=== PATIENT | female | born 1935 | race Two or more races ===

== ENCOUNTER 2024-11-30 09:49 | Inpatient (IN) | payer MEDICARE, MEDICAID, SELFPAY ==
[2024-11-30] VITALS (27 sets, daily range): BP systolic 48–150; BP diastolic 38–106; PULSE 76–112; RESP 16–98; TEMP 36.4; O2SAT 69–100; BMI 27.2
--- NOTE | 2024-11-30 09:55 | EDNOTE_ITS ---
Altered Mental Status RME/HPI General Chief Complaint: Altered Mental Status Stated Complaint: AMS Arrival date/time: 11/30/24 09:49 Limitations: no limitations RME / HPI RME / HPI narrative: 89 year old female with history of hypertension, diabetes, rectal adenocarcinoma, s/p abdominoperineal resection with colostomy, underwent chemotherapy presents to the ED BIBA from home for evaluation of altered mental status. According to medics, family on scene reported the patient was at her baseline this morning and was engaged in conversation when she suddenly complained of chest pain, then became unresponsive shortly after. On their arrival, the patient was noted to be pale and diaphoretic. Telemetry showed atrial fibrillation with a heart rate of 49 bpm, SBP of 94, blood glucose of 220, and a GCS of 6. Medics also reported that the patient bit her tongue en route to the ED, although no seizure activity was witnessed. Upon arrival to the ED, the patient is nonverbal and unable to provide additional history. Related Data Home Medications ?Medication ?Instructions ?Recorded ?Confirmed amlodipine 10 mg tablet 10 mg PO QDAY 02/12/2103/08 celecoxib 200 mg capsule 200 mg PO BID PRN pain 02/1203/08/23 clonazepam 1 mg tablet 1 mg PO HS 02/12/21 03/08/23 metformin 1,000 mg tablet 1,000 mg PO BID 02/12/21 olmesartan 40 1 tab PO QDAY 02/12/2103/08 mg-hydrochlorothiazide 25 mg tablet omeprazole 20 mg capsule,delayed 20 mg PO QMORNING 03/08/23 release Allergies Allergy/AdvReac Type Severity Reaction Status Date / Time Penicillins Allergy Unknown Verified 03/08/23 08:35 Review of Systems Review of Systems ROS Unobtainable: unobtainable due to mental status Past Medical History Past Medical History CARDIAC: Positive Cardiac Disorders and Hypertension GASTROINTESTINAL: Positive Gastrointestinal Disorders (tumor in colon had surgery) and Ulcer (many years ago) REPRODUCTIVE: Positive Previous Pregnancies MUSCULOSKELETAL: Positive Musculoskeletal Disorders and Arthritis ENT: Positive Cataracts ENDOCRINE: Positive Endocrine Disorders and Diabetes Mellitus Type 2 PSYCHO/SOCIAL: Positive Depression and Anxiety OTHER HISTORY: Positive Chicken Pox Family History FAMILY HISTORY: Positive Family Surgery Surgical History SURGICAL: Positive Abdominal Surgery (COLOSTOMY) Social History SMOKING STATUS: Never smoker ED Exam General Limitations: Present no limitations General appearance: Present other (Eyes closed, does respond to voice, tachypneic, pale, mild diaphoresis) Head Head exam: Present atraumatic, normocephalic and normal inspection Eye Eye exam: Present normal appearance, PERRL and EOMI ENT ENT exam: Present normal exam, normal oropharynx and mucous membranes moist Neck Neck exam: Present normal inspection, full ROM, trachea midline and other (No JVD ) Chest Chest inspection: Present normal inspection and symmetric chest wall rise Respiratory Respiratory exam: Present other (slight expiratory wheeze in the bases ) Cardiovascular Cardiovascular exam: Present regular rate, normal rhythm and other (distant heart sounds ) Abdominal Exam Abdominal exam: Present soft and normal bowel sounds Extremities Exam Extremities exam: Present normal inspection Back Exam Back exam: Present normal inspection and full ROM Neurological Exam Neurological exam: Present other (Patient is has eyes closed, does respond to voice, nonfocal ) Psychiatric Psychiatric exam: Present normal affect and normal mood Skin Skin exam: Present warm, intact, diaphoresis (mild) and pallor Course Quality Measures none Orders Category Date Time Status Bedside Blood Glucose NOW Care 11/30/24 10:20 Active COVID-19 Screening Questionnaire NOW Care 11/30/24 12:10 Active Insurance Compliance Analyst NOW Care 11/30/24 10:20 Active Continuous Pulse Oximetry NOW Care 11/30/24 10:20 Completed Decision to Admit X1 Care 11/30/24 12:10 Completed EKG (ED ONLY) *Do not use* NOW Care 11/30/24 10:20 Completed White to Robert Routine Care 11/30/24 11:25 Ordered Insert IV NOW Care 11/30/24 10:20 Active Intubation NOW Care 11/30/24 12:14 Completed NIH Stroke Scale now Care 11/30/24 10:20 Active NPO NOW Care 11/30/24 10:20 Active Neuro Check Q15MIN Care 11/30/24 10:20 Completed Nurse Swallow Screen x1 Care 11/30/24 10:20 Active Consult to Neurology / Tele-Neurology Routine Cons 11/30/24 10:[address] angio stroke protocol Stat Exams 11/30/24 10:[address] stroke protocol Stat Exams 11/30/24 10:20 Completed EKG (ED Only) Stat Exams 11/30/24 10:20 Draft XR chest 1V portable Stat Exams 11/30/24 10:41 Completed Alcohol, Blood Medical Stat Lab 11/30/24 10:20 Completed Arterial Blood Gas Routine Lab 11/30/24 12:12 Completed Arterial Blood Gas Stat Lab 11/30/24 11:13 Completed B-Type Natriuretic Peptide Stat Lab 11/30/24 10:20 Completed CBC Stat Lab 11/30/24 10:20 Completed Comprehensive Metabolic Panel Stat Lab 11/30/24 10:20 Completed Drug Screen,Urine Stat Lab 11/30/24 10:24 Completed Magnesium Stat Lab 11/30/24 10:20 Completed Partial Thromboplastin Time Stat Lab 11/30/24 10:20 Completed Prothrombin Time with INR Stat Lab 11/30/24 10:20 Completed Troponin I Stat Lab 11/30/24 10:20 Completed Urinalysis Stat Lab 11/30/24 10:24 Completed Urine Culture Stat Lab 11/30/24 10:24 Received Etomidate Inj [Amidate Inj] Med 11/30/24 10:30 Discontinued 10 mg IVP X1 ONE Etomidate Inj [Amidate Inj] Med 11/30/24 10:20 Discontinued 20 mg .ROUTE .STK-MED ONE Furosemide [Lasix Inj] Med 11/30/24 11:50 Discontinued 20 mg IVP X1 ONE Norepinephrine/D5W 8mg/250ml [Levophed in D5W 8mg/250ml Med 11/30/24 10:44 Discontinued ] 8 mg in 250 ml IV .STK-MED Norepinephrine/D5W 8mg/250ml [Levophed in D5W 8mg/250ml Med 11/30/24 11:26 Discontinued ] 8 mg in 250 ml IV 0.05 mcg/kg/min Ondansetron Inj [Zofran Inj] Med 11/30/24 10:19 Active 4 mg IV Q4HR PRN Pantoprazole Inj [Protonix Inj] Med 11/30/24 11:22 Discontinued 40 mg IVP X1 ONE Propofol 1,000 mg Ivpb [Diprivan Ivpb] Med 11/30/24 11:52 Discontinued 1,000 mg in 100 ml IV .STK-MED Propofol 1,000 mg Ivpb [Diprivan Ivpb] Med 11/30/24 11:55 Discontinued 1,000 mg in 100 ml IV 5 mcg/kg/min Sodium Chloride 0.9% 1000 ml [Ns] 1,000 ml Med 11/30/24 10:30 Active IV Q10H Succinylcholine Inj [Anectine Inj] Med 11/30/24 10:20 Discontinued 200 mg .ROUTE .STK-MED ONE Succinylcholine Inj [Anectine Inj] Med 11/30/24 10:30 Discontinued 200 mg IV X1 ONE Mechanical [Volume Ventilator] Stat RT 11/30/24 Active Oxygen Delivery NOW RT 11/30/24 10:20 Active Vital Signs Vital signs: Vital Signs Temperature 97.5 F 11/30/24 09:54 Pulse Rate 85 11/30/24 09:54 Respiratory Rate 16 11/30/24 09:54 Blood Pressure 123/60 11/30/24 09:54 Pulse Oximetry (%) 96 11/30/24 09:54 Oxygen Delivery Method Oxy Mask 11/30/24 09:54 Oxygen Flow Rate 15 11/30/24 09:54 Procedures -ED Procedure Comment Please refer to resident Dr. Doshi for intubation procedure. Altered Mental Status MDM Narrative MDM Narrative:: I, Lisandra Kirk, am scribing for and in the presence of Dr. Thomas. 1018: RN reports patient is not moving her left side, stroke orders made at this time. 1030: I spoke with patients family. Report patient is a full code. 1053: HR low 40s. Given epinephrine. 1055: Patients blood pressure 50/30's, no pulses palpable. Code blue called overhead and CPR initiated. 1058: Pulse check, +femoral pulse, sinus tachycardia rate 114 on telemetry, saturating 89%. +ROSC. Patient data External records reviewed:: [facility] previous records (I reviewed oncology f/u note on 02/19/2024 ) and EMS form (I reviewed ECG performed by medics which shows T- wave inversion, no STEMI. ) Clinical information provided by:: EMS Social determinants that could affect healthcare access:: none Patient has the following chronic illnesses:: hypertension, diabetes, rectal adenocarcinoma, s/p abdominoperineal resection with colostomy, underwent chemotherapy How is presenting disease/condition affected by chronic disease/condition?: exacerbated by Evaluation data The following diagnostics were reviewed and interpreted by me:: lab results, radiology exam(s) and EKG tracing(s) (EKG @ 09:53. Sinus rhythm, rate 79, left axis deviation, NV 178ms, QRS 90ms, QT/QTc 381/415ms. ) Lab and/or radiology exams considered but not ordered:: None Interpretation Summary: Ordering Physician: Zach Thomas MD Date of Service: 11/30/24 Procedure(s): CT stroke protocol Accession Number(s): [id number] cc: Zach Thomas MD; Jeremiah Rivera MD; Man Genao MD~ Examination: CT brain head without contrast. 2-D sagittal coronal reconstructions Date and time of exam:November 30, 2024 1142 hrs. Indications: Stroke alert, onset focal neurologic deficit today CTDI: vol (mGy):46.8 DLP: (mGycm):944 Technique: Multiple CT axial sections of the brain have been obtained, 5 mm slice thickness. Contrast has not been administered. 2-D sagittal, coronal reconstructions have been obtained Low dose protocols were performed. One or more of the following dose reduction techniques were used; automated exposure control, adjustment of the mA and/or KV according to patient size, use of iterative reconstruction technique. Findings: No significant ventricular enlargement. Intra-axial or extra-axial hemorrhage density is not seen. No mass effect or midline shift Basal cisterns are not remarkable. Fourth ventricle is midline. Cranial vault intact. Impression: Negative for acute hemorrhage, mass effect or midline shift Dictated By: Jeremiah Rivera MD Signed By: <Electronically signed by Jeremiah Rivera MD in [place]> 11/30/24 1147 Ordering Physician: Zach Thomas MD Date of Service: 11/30/24 Procedure(s): XR chest 1V portable Accession Number(s): [id number] cc: Zach Thomas MD; Jeremiah Rivera MD; Man Genao MD~ Examination: AP chest single view Technique one AP portable semiupright chest single view Indications: Hypoxic respiratory failure Findings: Early heart failure Moderate enlargement left ventricle with vascular congestion and perihilar edema Endotracheal tube tip 4 cm above jahaira Moderate osteopenia Impression: Early CHF. Tracheal tube tip 4 cm above jahaira Dictated By: Jeremiah Rivera MD Signed By: <Electronically signed by Jeremiah Rivera MD in [place]> 11/30/24 1146 ======= Ordering Physician: Zach Thomas MD Date of Service: 11/30/24 Procedure(s): CT angio stroke protocol Accession Number(s): [id number] cc: Zach Thomas MD; Jeremiah Rivera MD; Man Genao MD~ Examination: CTA carotids with intravenous contrast CTA brain, head with intravenous contrast. 2-D sagittal, coronal reconstructions. 3-D reconstructions. Exam date and time: November 30, 2024 1149 hrs. Indications: Stroke alert, onset chest pain status post cardiopulmonary arrest today CTDI: vol (mGy) 34.88 DLP: (mGycm) 463 Technique: Multiple CTA axial brain, head carotid images post intravenous contrast injection 75 cc, Isovue-370. 2-D sagittal, coronal reconstructions. 3-D reconstructions, 3-D post processing including vascular maximum intensity projection images. Low dose protocols were performed. One or more of the following dose reduction techniques were used; automated exposure control, adjustment of the mA and/or KV according to patient size, use of iterative reconstruction technique. Findings: Assessment is difficult secondary to patient motion Occlusion of the proximal right common carotid artery with filling extremely attenuated right internal carotid artery The petrous and juxtasellar central portion of the right internal carotid artery fill via R uniformly reduced in caliber The M1 segment right middle cerebral artery and trifurcation vessels do fill The left common carotid artery carotid bifurcation and internal carotid artery do fill The juxtasellar internal carotid artery on the left fills as well as M1 segments and middle cerebral branches Neck vertebral artery detail is extremely limited secondary to patient motion but vertebral arteries do appear to fill Basilar artery and posterior cerebral branches fill Impression: The study is significantly limited by patient motion There is no significant filling of the right common carotid artery A diffusely attenuated right internal carotid artery does fill There is filling of the supraclinoid portions of the internal carotid arteries M1 segments and middle cerebral artery trifurcation vessels as well as basilar artery and posterior cerebral branches FYI: I asked for this examination to be sent to tele [employer] but no report Dictated By: Jereimah Rivera MD Signed By: <Electronically signed by Jeremiah Rivera MD in [place]> 11/30/24 1420 Medications / Prescriptions Medications or Prescriptions considered but not ordered:: None Medication administrations:: Medication Administration History Acetaminophen (Acetaminophen 325 Mg Tablet) 650 mg PO Q6H PRN PRN Reason: mild pain 1-3 or Fever >100.3 Stop: 12/30/24 12:20 Enoxaparin Sodium (Enoxaparin Sod Inj 40 Mg/0.4 Ml Syringe) 40 mg SC QDAY YAS Stop: 12/14/24 12:29 Last Admin: 11/30/24 12:54 Dose: 40 mg Documented By: YAIR Famotidine (Famotidine Inj 10 Mg/Ml Vial 2 Ml) 20 mg IVP Q12HR [facility] Stop: 12/30/24 20:59 Sodium Chloride (Ns) 1,000 mls @ 100 mls/hr IV Q10H YAS Stop: 12/30/24 10:29 Last Infusion: 11/30/24 14:50 Dose: 0 mls/hr Documented By: Admin: 11/30/24 10:55 Dose: 100 mls/hr Documented By: YAIR Vasopressin/Sodium Chloride (Vasostrict/Ns Ivpb) 20 unit in 100 mls @ 9 mls/hr IV .Q11H7M PRN; Protocol PRN Reason: PER PROTOCOL Stop: 12/30/24 13:10 Last Titration: 11/30/24 16:24 Dose: 0 unit/min, 0 mls/hr Documented By: Admin: 11/30/24 13:43 Dose: 0.03 unit/min, 9 mls/hr Documented By: YAIR Propofol (Diprivan Ivpb) 1,000 mg in 100 mls @ 1.897 mls/hr IV .Q24H PRN; Protocol PRN Reason: PER PROTOCOL Stop: 12/30/24 11:54 Norepinephrine Bitartrate (Levophed In Ns 16mg/250ml) 16 mg in 250 mls @ 2.964 mls/hr IV .Q24H PRN; Protocol PRN Reason: PER PROTOCOL Stop: 12/30/24 14:41 Magnesium Sulfate (Magnesium Sulfate Ivpb) 2 gm in 50 mls @ 25 mls/hr IV X1 ONE Stop: 11/30/24 16:56 Dobutamine HCl/Dextrose (Dobutrex/D5w Ivpb) 500 mg in 250 mls @ 1.897 mls/hr IV .Q24H PRN; Protocol PRN Reason: PER PROTOCOL Stop: 12/30/24 15:30 Ondansetron HCl (Ondansetron Inj 2 Mg/Ml Inj 2 Ml) 4 mg IV Q4HR PRN PRN Reason: NAUSEA OR VOMITING Stop: 12/30/24 10:18 Pharmacy Consult (Vancomycin Pharmacy To Dose 1 Each Each) 1 each IV QDAY PRN PRN Reason: PROTOCOL Stop: 12/30/24 12:44 Discontinued Medications Etomidate (Etomidate Inj 2 Mg/Ml Vial 10 Ml) Confirm Administered Dose 20 mg .ROUTE .STK-MED ONE Stop: 11/30/24 10:21 Last Admin: 11/30/24 10:44 Dose: Not Given Documented By: YAIR Non-Admin Reason: Override Medication Etomidate (Etomidate Inj 2 Mg/Ml Vial 10 Ml) 10 mg IVP X1 ONE Stop: 11/30/24 10:31 Last Admin: 11/30/24 10:36 Dose: Not Given Documented By: YAIR Non-Admin Reason: Duplicate Medication on eMAR Admin: 11/30/24 10:29 Dose: 10 mg Documented By: YAIR Furosemide (Furosemide Inj 10 Mg/Ml Vial 2 Ml) 20 mg IVP X1 ONE Stop: 11/30/24 11:51 Last Admin: 11/30/24 13:17 Dose: Not Given Documented By: YAIR Non-Admin Reason: Contraindicated Norepinephrine/Dextrose (Levophed In D5w 8mg/250ml) Confirm Administered Dose 8 mg in 250 mls @ ud IV .STK-MED ONE Stop: 11/30/24 10:45 Last Admin: 11/30/24 11:13 Dose: Not Given Documented By: YAIR Non-Admin Reason: Override Medication Norepinephrine/Dextrose (Levophed In D5w 8mg/250ml) 8 mg in 250 mls @ 5.928 mls/hr IV .Q24H PRN; Protocol PRN Reason: PER PROTOCOL Stop: 12/30/24 11:25 Last Titration: 11/30/24 16:26 Dose: Infused Documented By: Titration: 11/30/24 13:03 Dose: 0.5 mcg/kg/min, 59.279 mls/hr Documented By: Titration: 11/30/24 13:00 Dose: 0.3 mcg/kg/min, 35.567 mls/hr Documented By: Titration: 11/30/24 12:38 Dose: 0.27 mcg/kg/min, 32.011 mls/hr Documented By: Titration: 11/30/24 11:00 Dose: 0.25 mcg/kg/min, 29.64 mls/hr Documented By: Admin: 11/30/24 10:26 Dose: 0.05 mcg/kg/min, 5.928 mls/hr Documented By: YAIR Propofol (Diprivan Ivpb) 1,000 mg in 100 mls @ 1.897 mls/hr IV .Q24H PRN; Protocol PRN Reason: PER PROTOCOL Stop: 12/30/24 11:54 Last Titration: 11/30/24 12:40 Dose: 10 mcg/kg/min, 3.794 mls/hr Documented By: Admin: 11/30/24 12:05 Dose: 5 mcg/kg/min, 1.897 mls/hr Documented By: YAIR Co-signed By: NASIR Propofol (Diprivan Ivpb) Confirm Administered Dose 1,000 mg in 100 mls @ ud IV .STK-MED ONE Stop: 11/30/24 11:53 Last Admin: 11/30/24 12:13 Dose: Not Given Documented By: YAIR Non-Admin Reason: Override Medication Ceftriaxone Sodium/Dextrose (Rocephin/D5w 1gm Iv Premix) 1 gm in 50 mls @ 100 mls/hr IV QDAY [facility] Stop: 12/07/24 12:41 Last Infusion: 11/30/24 13:27 Dose: Infused Documented By: Admin: 11/30/24 12:57 Dose: 100 mls/hr Documented By: YAIR Vancomycin/Sodium Chloride (Vancomycin/Ns 1 Gm Ivpb) 200 mls @ 120 mls/hr IV X1 ONE Stop: 11/30/24 14:39 Last Infusion: 11/30/24 15:00 Dose: 0 mls/hr Documented By: Admin: 11/30/24 13:43 Dose: 120 mls/hr Documented By: YAIR Sodium Chloride (Ns) 1,000 mls @ 999 mls/hr IV .Q1H1M ONE Stop: 11/30/24 14:06 Last Infusion: 11/30/24 14:20 Dose: Infused Documented By: Admin: 11/30/24 13:15 Dose: 999 mls/hr Documented By: YAIR Piperacillin/Tazobactam/Dextrose (Zosyn) 3.375 gm in 50 mls @ 100 mls/hr IV Q8HR YAS Stop: 12/07/24 14:36 Dobutamine HCl/Dextrose (Dobutrex/D5w Ivpb) 500 mg in 250 mls @ 1.897 mls/hr IV .Q24H PRN; Protocol PRN Reason: Per Protocol Stop: 12/30/24 15:20 Sodium Chloride (Ns) 1,000 mls @ 999 mls/hr IV .Q1H1M ONE Stop: 11/30/24 11:45 Last Infusion: 11/30/24 11:15 Dose: Infused Documented By: Admin: 11/30/24 10:45 Dose: 999 mls/hr Documented By: YAIR Pantoprazole Sodium (Pantoprazole Inj 40 Mg Vial) 40 mg IVP X1 ONE Stop: 11/30/24 11:23 Last Admin: 11/30/24 12:56 Dose: 40 mg Documented By: YAIR Sodium Chloride (Sodium Chloride Rt 10% 15 Ml Nebu) 5 ml INH X1 ONE Stop: 11/30/24 14:03 Last Admin: 11/30/24 14:11 Dose: Not Given Documented By: ADE Non-Admin Reason: Other, see note Succinylcholine Chloride (Succinylcholine Inj 20 Mg/Ml Vial 10 Ml) Confirm Administered Dose 200 mg .ROUTE .STK-MED ONE Stop: 11/30/24 10:21 Last Admin: 11/30/24 10:43 Dose: Not Given Documented By: YAIR Non-Admin Reason: Override Medication Succinylcholine Chloride (Succinylcholine Inj 20 Mg/Ml Vial 10 Ml) 200 mg IV X1 ONE Stop: 11/30/24 10:31 Last Admin: 11/30/24 10:36 Dose: Not Given Documented By: YAIR Non-Admin Reason: Duplicate Medication on eMAR Admin: 11/30/24 10:30 Dose: 100 mg Documented By: YAIR See above Consultations Consultation(s) initiated? (list below): Yes Consultation #1 (Physician, Specialty, Details): I spoke with women nurse Dr. Jamse. Discussed patients PMHx, HPI, ED course, exam findings, labs, and radiology results. She accepts the patient for admission. Time: 12:08 Diagnosis Differential diagnosis altered mental status: altered mental status, hypoglycemia, hyponatremia, subarachnoid hemorrhage and sepsis Most likely diagnosis given after review of the tests above:: Acute respiratory failure Acute CHF Hypoxia Acute hypotension Admission Indicated Admission indicated?: indicated Admission Request Was there a request for admission?: Yes Admission Attestation Admission request attestation: Discussed case with [] from Hospitalist service regarding admission. Discussed patients ED course, exam findings, labs, and radiology results. The Hospitalist [agrees,declines] to accept the patient for admission. Disposition Plan Disposition Plan: Admit Critical Care Time Critical Care Time Critical Care Time: Yes Total Critical Care Time (min.): 60 Attestation: The high probability of sudden, clinically significant deterioration in the patient's condition required the highest level of my preparedness to intervene urgently. The services I provided to this patient were to treat and/or prevent clinically significant deterioration. Services included the following: chart data review, reviewing nursing notes and/or old charts, documentation time, integrity consultant collaboration regarding findings and treatment options, medication orders and management, direct patient care, vital sign assessments and ordering, interpreting and reviewing diagnostic studies and lab tests. Aggregate critical care time includes only time during which I was engaged in work directly related to the patient's care, as described above, whether at bedside or elsewhere in the Emergency Department. It did not include time spent performing other reported procedures or the services of residents, students, nurses or physician assistants. Discharge Plan Plan Patient Disposition: Admit Acute Care w/in Hospital Discharge Disposition comment: ICU Problem List Clinical Impression: Acute respiratory failure, Acute CHF, Hypoxia, Acute hypotension
--- NOTE | 2024-11-30 10:05 | PC.NURSE ---
PATIENT ARRIVED ED WITH ALOC, PER EMS PATIENT WAS FOUND AT HOME WITH FAMILY STATING THAT PATIENT WAS HAVING SUDDEN ONSET OF CHEST PAIN AND BECAME UNRESPONSIVE. EMS ESTABLISHED IV TO LEFT EJ, MONITOR, BS 220. DR SUGGS AT BEDSIDE UPON ARRIVAL, PATIENT GCS 10, WITH VOMITING. PATIENT PLACED IN GOWN, IV ESTABLISHED. PATIENT PRESENTS WITH COLOSTOMY BAG. UNABLE TO GATHER MEDICAL HISTORY DUE TO MENTAL STATUS. ROBERTO PLACED WITH URINE OUTPUT. WILL CONTINUE TO MONITOR PATIENT.
--- NOTE | 2024-11-30 10:20 | XR_ITS ---
Examination: CTA carotids with intravenous contrast CTA brain, head with intravenous contrast. 2-D sagittal, coronal reconstructions. 3-D reconstructions. Exam date and time: November 30, 2024 1149 hrs. Indications: Stroke alert, onset chest pain status post cardiopulmonary arrest today CTDI: vol (mGy) 34.88 DLP: (mGycm) 463 Technique: Multiple CTA axial brain, head carotid images post intravenous contrast injection 75 cc, Isovue-370. 2-D sagittal, coronal reconstructions. 3-D reconstructions, 3-D post processing including vascular maximum intensity projection images. Low dose protocols were performed. One or more of the following dose reduction techniques were used; automated exposure control, adjustment of the mA and/or KV according to patient size, use of iterative reconstruction technique. Findings: Assessment is difficult secondary to patient motion Occlusion of the proximal right common carotid artery with filling extremely attenuated right internal carotid artery The petrous and juxtasellar central portion of the right internal carotid artery fill via R uniformly reduced in caliber The M1 segment right middle cerebral artery and trifurcation vessels do fill The left common carotid artery carotid bifurcation and internal carotid artery do fill The juxtasellar internal carotid artery on the left fills as well as M1 segments and middle cerebral branches Neck vertebral artery detail is extremely limited secondary to patient motion but vertebral arteries do appear to fill Basilar artery and posterior cerebral branches fill Impression: The study is significantly limited by patient motion There is no significant filling of the right common carotid artery A diffusely attenuated right internal carotid artery does fill There is filling of the supraclinoid portions of the internal carotid arteries M1 segments and middle cerebral artery trifurcation vessels as well as basilar artery and posterior cerebral branches FYI: I asked for this examination to be sent to [facility] but no report
--- NOTE | 2024-11-30 10:20 | XR_ITS ---
Examination: CT brain head without contrast. 2-D sagittal coronal reconstructions Date and time of exam:November 30, 2024 1142 hrs. Indications: Stroke alert, onset focal neurologic deficit today CTDI: vol (mGy):46.8 DLP: (mGycm):944 Technique: Multiple CT axial sections of the brain have been obtained, 5 mm slice thickness. Contrast has not been administered. 2-D sagittal, coronal reconstructions have been obtained Low dose protocols were performed. One or more of the following dose reduction techniques were used; automated exposure control, adjustment of the mA and/or KV according to patient size, use of iterative reconstruction technique. Findings: No significant ventricular enlargement. Intra-axial or extra-axial hemorrhage density is not seen. No mass effect or midline shift Basal cisterns are not remarkable. Fourth ventricle is midline. Cranial vault intact. Impression: Negative for acute hemorrhage, mass effect or midline shift
--- NOTE | 2024-11-30 10:20 | EKG_ITS ---
[facility] Test Date: 2024-11-30 Pat Name: CYNTHIA TABOR Department: Room: - Gender: Female Enterprise Systems Engineer: : [id number] Requested By: Zach Hairston Order Number: [id number] Reading MD: Zach Hairston Measurements Intervals [place] Rate: 79 P: 50 [place]: 178 QRS: -67 QRSD: 90 T: 36 QT: 381 QTc: 437 Interpretive Statements SINUS RHYTHM WITH OCCASIONAL SUPRAVENTRICULAR PREMATURE COMPLEXES LEFT AXIS DEVIATION [QRS AXIS < -30] NONSPECIFIC T-WAVE ABNORMALITY Compared to ECG 02/17/2022 08:44:00 Incomplete right bundle-branch block no longer present Possible ischemia no longer present T-wave abnormality still present /store/S0/[id number]/[id number].pdf
[2024-11-30] MEDS: Norepinephrine/D5W 8mg/250ml 8 MG/250 ML BAG 5.928 MG IV (10:26)
[2024-11-30] MEDS: ETOMIDATE INJ 2 MG/ML VIAL 10 ML 10 MG IVP (10:29)
[2024-11-30] MEDS: SUCCINYLCHOLINE INJ 20 MG/ML VIAL 10 ML 200 MG IV (10:30)
--- NOTE | 2024-11-30 10:30 | PC.NURSE ---
DR. SUGGS AT BEDSIDE TO EVALUTE PATIENTS BREATHING PRIOR TO TAKING TO CT. PATIENT WITH LABORED BREATHING AND CONTINUED ALTERED MENTAL STATUS. TEAM AT BEDSIDE TO PERFORM INTUBATION. MEDICATION ADMINISTERED, PATIENT INTUBATION COMPLETED AT 1030. 7.5 ET TUBE WITH 23 AT THE LIPS, POSITIVE COLOR CHANGE WITH CO2 DETECTOR, BILATERAL LUNG SOUNDS. PATIENT BEGAN TO ANDREW DOWN TO 40 BPM, NO PULSE PALPATED. CODE BLUE CALLED, TEAM ARRIVED, 1 ROUND OF EPI GIVEN, CPR, PATIENT PLACED ON AED WITH PEA AT 1055. AT 1100 PATIENT WITH PULSES, LEVOFED AND PROPOFOL DRIP STARTED. DR. SUGGS DISCUSSING OPTIONS WITH FAMILY IN CONFERENCE ROOM.
--- NOTE | 2024-11-30 10:41 | XR_ITS ---
Examination: AP chest single view Technique one AP portable semiupright chest single view Indications: Hypoxic respiratory failure Findings: Early heart failure Moderate enlargement left ventricle with vascular congestion and perihilar edema Endotracheal tube tip 4 cm above jahaira Moderate osteopenia Impression: Early CHF. Tracheal tube tip 4 cm above jahaira
[2024-11-30] MEDS: SODIUM CHLORIDE 0.9% 1000 ML 1,000 ML 999 ML IV ×2 (10:45→13:15)
[2024-11-30] MEDS: SODIUM CHLORIDE 0.9% 1000 ML 1,000 ML 100 ML IV (10:55)
[2024-11-30 11:04] LABS: Collection Type, Urine Catheter
[2024-11-30 11:07] LABS: Basophils # (Auto) 0.1 Thou/mm3 (0.0-0.2); Basophils % (Auto) 1 % (0-2.5); Eosinophils # (Auto) 0.1 Thou/mm3 (0.0-0.5); Eosinophils % (Auto) 1 % (0-10); Hematocrit 33.9 % (36.0-46.0); Hemoglobin 10.8 g/dL (12.0-16.0); Immature Granulocytes % (Auto) 1 % (0-0); Immature Granulocytes Auto 0.06 Thou/mm3 (0.00-0.00); Lymphocytes # (Auto) 5.2 Thou/mm3 (1.0-4.8); Lymphocytes % (Auto) 39 % (10-50); Mean Corpuscular HGB Conc 31.9 g/dl (31.0-37.0); Mean Corpuscular Hemoglobin 29.2 pg (25.0-35.0); Mean Corpuscular Volume 92 fL (80-100); Monocytes # (Auto) 0.4 Thou/mm3 (0.0-0.8); Monocytes % (Auto) 3 % (0-12); Neutrophils # (Auto) 7.4 Thou/mm3 (1.8-7.7); Neutrophils % (Auto) 56 % (37-80); Nucleated Red Blood Cell % 0 /100 WBC (0); Platelet Count 284 Thou/mm3 (140-440); RDW Standard Deviation 51.4 fL (36.4-46.3); White Blood Count 13.3 Thou/mm3 (3.6-11.0)
[2024-11-30 11:24] LABS: Bilirubin,Urine Negative (Negative); Blood,Urine Negative (Negative); Clarity,Urine Clear (Clear/Hazy); Glucose, Urine Negative (Negative); Ketones,Urine Negative (Negative); Leukocyte Esterase,Urine Negative (Negative); Nitrite,Urine Negative (Negative); Protein,Urine Trace (Neg - Trace); RBC,Urine 1 /hpf (0-3); Specific Gravity,Urine 1.014 (1.001-1.035); Squamous Epithelial Cell,Urine < 1 /hpf (0-5); Urobilinogen,Urine Negative mg/dL (0.0-1.0); WBC,Urine 1 /hpf (0-5)
[2024-11-30 11:26] LABS: Base Excess -2 (-3-3); HCO3 24 mEq/L (20-26); PCO2 44 mmHg (32.0-48.0); PO2 138 mmHg (83-108); pH, Arterial 7.34 (7.35-7.45)
[2024-11-30 11:27] LABS: Allen Test Not Performed; Inspired Oxygen, FIO2 100 %; O2 Saturation 86 % (91-98); Puncture Site Left Radial
[2024-11-30 11:28] LABS: Color,Urine Lt-Yellow (Lt Yel-Yel)
[2024-11-30 11:30] LABS: INR 1.1 (0.9-1.3); Partial Thromboplastin Time 23.6 Seconds (22.0-36.0); Prothrombin Time 11.8 Seconds (9.0-12.2)
[2024-11-30 11:33] LABS: Alanine Aminotransferase 10 U/L (10-49); Albumin/Globulin Ratio 1.5 (1.2-2.2); Alcohol, Blood Medical < 3.0 mg/dL (0-10.0); Alkaline Phosphatase 140 U/L (46-116); Anion Gap 13 (7-16); Aspartate Amino Transferase 20 U/L (0-34); BUN/Creatinine Ratio 19 Ratio (12-20); Bilirubin,Total 0.4 mg/dL (0.3-1.2); Blood Urea Nitrogen 19 mg/dL (9-23); Calcium 9.1 mg/dL (8.3-10.6); Calcium (Corrected) 9.1 mg/dL (8.5-10.1); Carbon Dioxide 23.6 mMol/L (20.0-31.0); Chloride 101 mMol/L (98-107); Estimated Creatinine Clearance 32.3 mL/min (>60); Globulin 2.6 gm/dL (2.3-3.5); Glucose 282 mg/dL (74-106); Magnesium 1.8 mg/dL (1.6-2.6); Osmolality,Calculated 287 (275-295); Potassium 3.8 mMol/L (3.4-5.1); Sodium 138 mMol/L (136-145); Total Protein 6.6 gm/dL (5.7-8.2); Troponin I < 0.020 ng/mL (0.0-0.045); eGFR 54 See Note
[2024-11-30 11:50] LABS: Amphetamine/Methamp Scrn,U Negative (Negative); Barbiturate Screen,Urine Negative (Negative); Benzodiazepines Screen,Urine Negative (Negative); Benzoylecgonine Screen, Ur Negative (Negative); Fentanyl Screen,Urine Negative (Negative); Opiate Screen,Urine Negative (Negative); THC Screen,Urine Negative (Negative)
--- NOTE | 2024-11-30 11:50 | PC.NURSE ---
PATIENT PREPARED FOR CT, RT IN ROOM PATIENT PLACED ON PORTABLE VENT. PATIENT TAKEN TO CT, TOLERATED WELL. UPON ARRIVAL BACK TO ED PATIENT BECAME HYPOTENSIVE AND DR. PAULA AT BEDSIDE
--- NOTE | 2024-11-30 12:03 | PD.RESPROC ---
Procedures Procedure Date / Time 11/30/24 1039 Procedural Time Out Time out performed: Yes Intubation Indication(s): inability to protect airway Informed consent obtained: obtained from surrogate decision maker Time out done, and the following verified: correct patient, side and site, procedure, patient position and implants and/or equipment Sedative: etomidate Mg given: 20 Paralytic: succinylcholine Mg given: 200 Laryngoscope: fiber optic video scope Assist device used: fiber optic device ET tube size: 7.5 ET tube uncuffed: Yes Tube secured depth (cm): 23 Tube secured location: lips Tube placement confirmation: visualized tube passing through cords, equal breath sounds bilaterally, no breath sounds over epigastrium and confirmation by capnometry Patient tolerated procedure: well Intubation complications: none Additional comments: The patient's management plan was discussed with my attending physician MD Maxi Aguilar MD, PGY2
[2024-11-30] MEDS: PROPOFOL 1,000 MG IVPB 1,000 MG/100 ML VIAL 1.897 MG IV (12:05)
[2024-11-30 12:16] LABS: Base Excess -9 (-3-3); HCO3 18 mEq/L (20-26); PCO2 45 mmHg (32.0-48.0); PO2 414 mmHg (83-108); pH, Arterial 7.22 (7.35-7.45)
[2024-11-30 12:28] LABS: Inspired Oxygen, FIO2 100 %; O2 Saturation 98 % (91-98); Puncture Site Left Radial
[2024-11-30 12:29] LABS: Allen Test Not Performed
[2024-11-30 12:44] LABS: B-Type Natriuretic Peptide 541 pg/mL (0-100)
[2024-11-30] MEDS: ENOXAPARIN SOD INJ 40 MG/0.4 ML SYRINGE SC (12:54)
[2024-11-30 12:55] LABS: Lactate (Lactic Acid) 9.3 mMol/L (0.4-2.0)
[2024-11-30] MEDS: PANTOPRAZOLE INJ 40 MG VIAL IVP (12:56)
[2024-11-30] MEDS: cefTRIAXone/D5w 1gm IV premix 1 GM/50 ML BAG IV (12:57)
--- NOTE | 2024-11-30 13:00 | PD.RESHP ---
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 History gathered from chart review and per granddaughter at bedside, Nano, who is primary caregiver and has power of custom ski maker pending documentation. Patient arrived via ambulance to the emergency room with a chief complaint of altered mental status and chest pain noted at 8 AM. Upon arrival patient required intubation as [place] Coma Scale 6 noted and unable to protect airway. Patient developed chest pain at approximately 8 AM, appeared to have an apneic episode lost consciousness. Urinary incontinence noted by family members. Tremors in all 4 extremities. Noted to have a postictal state as patient appeared disoriented, staring off into space, and foaming at the mouth was noted. Patient has been complaining of a headache for the past 2 to 3 days. Decreasing oral intake. Drop in weight from 154-138. Fever of 100.7 overnight. Denied any recent sick contacts. Per granddaughter, unable to follow-up with oncologist since previous office visit. New medication recently added metoprolol succinate 50 mg daily for elevated blood pressure, systolics high 160s. Family had DC'd metformin 1000 p.o. twice daily over the last couple weeks as patient had experience hypoglycemic episodes. No previous history of PA. No previous CABG. No previous history of congestive heart failure. ER Course: Vitals: Blood pressure 112/60, heart rate 85, temperature 97.5, SpO2 96% on 15 L of oxygen-->Decreased MAP <40s. WBC 13.3,Hgb 10.8, Hct 33.9, MCV 92, Plt Count 284 NA 138, K 3.8, Chloride 101, Carbon dioxide 23.6, Anion gap 13, BUN 19, Cr 1.0, GFR 55, BUN/CR 19, Glucose 282, BNP -->541 ABG 7.34, pCO2 44, pO2 138, HCO3 24, FIO2 100 CEA 5.7 (2023), 2.8 (2021), 7.6 (2020) Melissa purdy called in the ER at 10:55 AM, MAP 37, PEA-->CPR & Epi-->Return of ROSC UA: negative blood cultures obtained ICU Consulted Pending CT head Medication: epi X2, NS 2 bolus 11/30/2024 ICU consulted for shock of unknown etiology and acute respiratory failure, requiring mechanical ventilation. GCS 6 on admission. PMH: Colorectal cancer s/p resection diabetes mellitus type 2, non insulin dependent HTN HLD Home Medication: Amlodipine Olmesartan-HCTZ 40-25 Atorvastatin Metoprolol succinate 50 mg qday, recently added Metformin 1000 PO BID, recently D/C by [facility] care provider Clonazapam Social History: Never smoker No illicit drug use Allergies: None-->changed to penicillins w/ nausea Code Status: Full Code Review of Systems Review of Systems Narrative Review of Systems: General appearance: YES weight change, YES fatigue, NO weakness, YES fever, NO chills, YES night sweats, No cough Skin: NO rash, NO itching, NO sores, NO moles HEENT: NO Trauma, YES nausea, NO vomiting, NO visual changes, NO blurry vision, NO double vision, NO tinnitus, NO vertigo, NO ear discharge, NO rhinorrhea, NO stuffiness, NO sneezing, NO allergy, NO epistaxis. NO Hoarseness, NO sore throat, NO swollen neck. Cardiac: YES chest pain, NO Palpitations, NO dyspnea on exertion, NO orthopnea, NO paroxysmal nocturnal dyspnea, NO edema Respiratory: NO Shortness of Breath, NO Wheezing, NO Cough, NO Sputum, NO hemoptysis GI:NO appetite, NO nausea, NO vomiting, NO dysphagia, NO changes in bowel frequency, NO stool color, NO diarrhea, NO constipation, NO hemetemesis, NO hemorrhoids, NO melena, NO hematechezia, NO abdominal pain, NO jaundice Renal: YES frequency, NO hesitancy, NO urgency, NO hematuria, NO nocturia, NO incontinence MSK: NO muscle weakness, NO gout, NO arthritis, NO muscle stiffness Neuro: NO headaches, YES tremors-acute, NO weakness, NO paralysis, Yes seizures-possible seizure at home, Yes loss of consciousness, NO numbness. Hem: NO anemia, NO easy bruising/bleeding, NO petechiae, NO purpura Endo: NO heat/cold intolerance, NO excessive sweating, NO polyuria, NO polydipsia, NO polyphagia, NO thyroid problems, YES diabetes Pysch: NO mood, Yes anxiety, NO depression Exam Vital Signs Temp Pulse Resp BP Pulse Ox O2 Del Method O2 Flow Rate 97.5 F 77 26 H 48/38 L 93 L Mechanical Ventilation 15 11/30/24 09:54 11/30/24 14:07 11/30/24 13:45 11/30/24 14:07 11/30/24 14:07 11/30/24 13:45 11/30/24 11:01 FiO2 50 11/30/24 14:07 Narrative Exam General Appearance: Alert & Oriented X0, well-nourished Female who is lying in bed, appears lethargic. No pressure ulcers or rashes noted on skin. Colostomy bag noted. HEENT: Skull symmetrical and atraumatic. Conjunctivae pink and moist. Pupils minimally reactive to light and accommodation (PERRL). External ear without lesion or discharge. Straight, nares patient, mucosa pink, no discharge. Cardio: Normal Rate and Rhythm with S1 and S2 heart sounds. No murmurs or extra heart sounds auscultated. No bruits on carotid auscultation. No peripheral edema or cyanosis. Lungs: Symmetric with good expansion. Chest and back non-tender. Breath sounds vesicular with crackles noted bilaterally Abdomen: no grimacing noted on abdominal exam, soft, Non-distended, hyporeactive Reactive Bowel Sounds Neuro: NO Alert, NO cooperative, NO oriented to person, NO place, and NO time. Speech clear. Left hemiparesis. Does not withdraw to painful stimuli. Results: Labs 11/30/24 15:36 11/30/24 15:36 Labs: Short CBC 11/30/24 11/30/24 Range/Units 10:20 15:36 WBC 13.3 H 14.5 H (3.6-11.0) Thou/mm3 Hgb 10.8 L 6.5 L* D (12.0-16.0) g/dL Hct 33.9 L 20.5 L* D (36.0-46.0) % Plt Count 284 51 L D (140-440) Thou/mm3 BMP 11/30/24 11/30/24 10:20 15:36 Sodium 138 157 H D Potassium 3.8 7.1 H* D Chloride 101 103 Carbon Dioxide 23.6 30.3 BUN 19 21 Creatinine 1.0 1.3 Glucose 282 H 241 H Calcium 9.1 6.6 L* D Cardiac Enzymes 11/30/24 11/30/24 Range/Units 10:20 15:36 Troponin I < 0.020 0.895 H* D (0.0-0.045) ng/mL Liver Function 11/30/24 11/30/24 Range/Units 10:20 15:36 Total Bilirubin 0.4 0.3 (0.3-1.2) mg/dL AST 20 827 H* (0-34) U/L ALT 10 1018 H* (10-49) U/L Alkaline Phosphatase 140 H 88 D (46-116) U/L Albumin 4.0 2.1 L D (3.4-4.8) gm/dL Urine 11/30/24 Range/Units 10:24 Urine Color Lt-Yellow (Lt Yel-Yel) Urine Clarity Clear (Clear/Hazy) Urine pH 8.0 H (5.0-7.0) Ur Specific [place] 1.014 (1.001-1.035) Urine Protein Trace (Neg - Trace) Urine Glucose (UA) Negative (Negative) ABG Interpretation ABG results: 11/30/24 11/30/24 11:13 12:12 ABG pH 7.34 L 7.22 L D ABG pCO2 44 45 ABG pO2 138 H 414 H D ABG HCO3 24 18 L ABG O2 Saturation 86 L 98 ABG Base Excess -2 -9 L Quality Measures Quality Measures none Advance care planning discussed with:: child (Sons at bedside) and legal surragate (Nano, granddaughter, pain caregiver, power of custom ski maker (pending documention)) Medications Home Medications and Allergies Home Medications ?Medication ?Instructions ?Recorded ?Confirmed ?Type amlodipine 10 mg tablet 10 mg PO QDAY 02/12/21 03/08/23 History celecoxib 200 mg capsule 200 mg PO BID PRN pain 02/12/21 03/08/23 History clonazepam 1 mg tablet 1 mg PO HS 02/12/21 03/08/23 History metformin 1,000 mg tablet 1,000 mg PO BID 02/12/21 03/08/23 History olmesartan 40 1 tab PO QDAY 02/12/21 03/08/23 History mg-hydrochlorothiazide 25 mg tablet omeprazole 20 mg capsule,delayed 20 mg PO QMORNING 06/22/22 03/08/23 History release Allergies Allergy/AdvReac Type Severity Reaction Status Date / Time Penicillins Allergy Unknown Verified 03/08/23 08:35 Visit Medications Acetaminophen (Acetaminophen 325 Mg Tablet) 650 mg PO Q6H PRN PRN Reason: mild pain 1-3 or Fever >100.3 Stop: 12/30/24 12:20 Enoxaparin Sodium (Enoxaparin Sod Inj 40 Mg/0.4 Ml Syringe) 40 mg SC QDAY [facility] Stop: 12/14/24 12:29 Last Admin: 11/30/24 12:54 Dose: 40 mg Famotidine (Famotidine Inj 10 Mg/Ml Vial 2 Ml) 20 mg IVP Q12HR [facility] Stop: 12/30/24 20:59 Sodium Chloride (Ns) 1,000 mls @ 100 mls/hr IV Q10H [facility] Stop: 12/30/24 10:29 Last Admin: 11/30/24 10:55 Dose: 100 mls/hr Vasopressin/Sodium Chloride (Vasostrict/Ns Ivpb) 20 unit in 100 mls @ 9 mls/hr IV .Q11H7M PRN; Protocol PRN Reason: PER PROTOCOL Stop: 12/30/24 13:10 Last Admin: 11/30/24 13:43 Dose: 0.03 unit/min, 9 mls/hr Propofol (Diprivan Ivpb) 1,000 mg in 100 mls @ 1.897 mls/hr IV .Q24H PRN; Protocol PRN Reason: PER PROTOCOL Stop: 12/30/24 11:54 Norepinephrine Bitartrate (Levophed In Ns 16mg/250ml) 16 mg in 250 mls @ 2.964 mls/hr IV .Q24H PRN; Protocol PRN Reason: PER PROTOCOL Stop: 12/30/24 14:41 Magnesium Sulfate (Magnesium Sulfate Ivpb) 2 gm in 50 mls @ 25 mls/hr IV X1 ONE Stop: 11/30/24 16:56 Dobutamine HCl/Dextrose (Dobutrex/D5w Ivpb) 500 mg in 250 mls @ 1.897 mls/hr IV .Q24H PRN; Protocol PRN Reason: PER PROTOCOL Stop: 12/30/24 15:30 Ondansetron HCl (Ondansetron Inj 2 Mg/Ml Inj 2 Ml) 4 mg IV Q4HR PRN PRN Reason: NAUSEA OR VOMITING Stop: 12/30/24 10:18 Pharmacy Consult (Vancomycin Pharmacy To Dose 1 Each Each) 1 each IV QDAY PRN PRN Reason: PROTOCOL Stop: 12/30/24 12:44 Discontinued Medications Etomidate (Etomidate Inj 2 Mg/Ml Vial 10 Ml) 10 mg IVP X1 ONE Stop: 11/30/24 10:31 Last Admin: 11/30/24 10:36 Dose: Not Given Furosemide (Furosemide Inj 10 Mg/Ml Vial 2 Ml) 20 mg IVP X1 ONE Stop: 11/30/24 11:51 Last Admin: 11/30/24 13:17 Dose: Not Given Norepinephrine/Dextrose (Levophed In D5w 8mg/250ml) 8 mg in 250 mls @ 5.928 mls/hr IV .Q24H PRN; Protocol PRN Reason: PER PROTOCOL Stop: 12/30/24 11:25 Last Titration: 11/30/24 13:03 Dose: 0.5 mcg/kg/min, 59.279 mls/hr Propofol (Diprivan Ivpb) 1,000 mg in 100 mls @ 1.897 mls/hr IV .Q24H PRN; Protocol PRN Reason: PER PROTOCOL Stop: 12/30/24 11:54 Last Titration: 11/30/24 12:40 Dose: 10 mcg/kg/min, 3.794 mls/hr Ceftriaxone Sodium/Dextrose (Rocephin/D5w 1gm Iv Premix) 1 gm in 50 mls @ 100 mls/hr IV QDAY YAS Stop: 12/07/24 12:41 Last Infusion: 11/30/24 13:27 Dose: Infused Vancomycin/Sodium Chloride (Vancomycin/Ns 1 Gm Ivpb) 200 mls @ 120 mls/hr IV X1 ONE Stop: 11/30/24 14:39 Last Admin: 11/30/24 13:43 Dose: 120 mls/hr Sodium Chloride (Ns) 1,000 mls @ 999 mls/hr IV .Q1H1M ONE Stop: 11/30/24 14:06 Last Admin: 11/30/24 13:15 Dose: 999 mls/hr Piperacillin/Tazobactam/Dextrose (Zosyn) 3.375 gm in 50 mls @ 100 mls/hr IV Q8HR YAS Stop: 12/07/24 14:36 Dobutamine HCl/Dextrose (Dobutrex/D5w Ivpb) 500 mg in 250 mls @ 1.897 mls/hr IV .Q24H PRN; Protocol PRN Reason: Per Protocol Stop: 12/30/24 15:20 Sodium Chloride (Ns) 1,000 mls @ 999 mls/hr IV .Q1H1M ONE Stop: 11/30/24 11:45 Last Admin: 11/30/24 10:45 Dose: 999 mls/hr Pantoprazole Sodium (Pantoprazole Inj 40 Mg Vial) 40 mg IVP X1 ONE Stop: 11/30/24 11:23 Last Admin: 11/30/24 12:56 Dose: 40 mg Sodium Chloride (Sodium Chloride Rt 10% 15 Ml Nebu) 5 ml INH X1 ONE Stop: 11/30/24 14:03 Last Admin: 11/30/24 14:11 Dose: Not Given Succinylcholine Chloride (Succinylcholine Inj 20 Mg/Ml Vial 10 Ml) 200 mg IV X1 ONE Stop: 11/30/24 10:31 Last Admin: 11/30/24 10:36 Dose: Not Given Assessment & Plan Plan Patient is an 89-year-old female with a past medical history of hypertension, diabetes mellitus type 2 [id number]-[id number], hyperlipidemia and a past medical history of 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 Central Nervous System: Problem: Acute encephalopathy DDX: acute encephalopathy secondary to stroke as patient experienced left hemiparesis on admission with increased risk factors of diabetes mellitus type 2 and HTN vs acute hypoxic respiratory failure and shock given lactic acid leading to hypotension with decreased perfusion vs concern seizure activity given concern of post-ictal state, bilateral tremors, and urinary incontinence Dx: CT head: negative to acute hemorrhage RX: NPO, head of bed 30, Prolactin, obtain lactic acid, EEG RRX: possible MRI if patient improves AM Cardiovascular: Problem: Shock of unknown etiology DDX: Shock distributive can not be ruled out given mild WBC elevation vs cardiogenic as increase pulmonary congestion, but EKG negative and troponin <0.02 vs obstructive shock Dx: Troponin <0.02, BNP 541, EKG sinus rhtym w/ PVCs QTc [address]: negative for acute hemorrhage Head/Neck CTA: 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 RX: Levophed, Vasopressin, Lactic acid Q4HR, 1 NS X 1 (total 3 NS bolus ), echo, BNP, holding lasix RRX: consider dobutamine Hypertension holding blood pressure medication given shock. Rx: hold amlodipine, Olmesartan-HCTZ, and Metoprolol Respiratory: Problem: Acute hypoxic respiratory failure, mechanical ventilation DDX: acute respiratory failure, GCS 6, unable to protect airway likely secodary to acute encephalopathy vs shock. Dx: ABG pH 7.34, pCO2 44, pO2 138, HCO3 24, O2 saturation 86 (L), FIO2 100, Chest X-ray: pulmonary vascular congestion RX: Mechanical Ventillation: VT 350-->380, RR 18-->25, FiO2 35% RRX: Chest x-ray, ABGS Gastroenterology: Problem: Colorectal cancer s/p resection DDX: Past medical history of colorectal cancer s/p resection in 2020. Previous PET scan in 2023 noted liver lesion with biopsy being negative. CEA 5.7. Dx: CEA 5.7 RX: NPO, Famotidine RRX: CT chest/abdomen/pelvis AM Renal: Problem: stable DDX: Dx: RX: RRX: Follow up with BUN, CR during morning labs Heme: Problem: Leukocytosis DDX: reactive vs infectious cause as unknown source meeting SIRS criteria w/ sofa score of 10 points Dx: WBC 13.3 RX: Blood,urine, and sputum cultures pending RRX: Normocytic Anemia, chronic Problem: Normocytic anemia that has been present since 2021 likley secondary to anemia of chronic disease vs acute blood loss vs iron deficiency Dx: Hgb 10.8, Hct 33.9 MCV 94 Rx: monitor hgb and hct RRx: hgb <7, transfuse Endo: Problem: Diabetes Mellitus Type II, non insulin dependent DDX: Past medical history of diabetes mellitus type II and recent termination of Metformin by PCP secondary to hypoglycemic episodes. Previous A1c 6.3 (2020) Dx: glucose on admission 282 RX: Sliding scale Q6HRS, A1c, lipid panel AM RRX: ID: Problem: SIRs DDX: Tachycardia, pyrexia of 100.7 reported at home w/ elevated WBC and no source of infection. Dx: SOFA 10 points RX: Zosy and Vancomycin (11/30/2024--), blood urine and sputum cultures. RRX: Health Maintenance: Disp: Pt is currently admitted to floors for further management of shock unknown etiology, awaiting improved MAP, wean off pressors, and blood cultures pending FEN: NPO GI: Famotidine DVT: Lovenox subq Code: Full Code Lines: peripheral and IJV central - The patient's plan was discussed with attending Dr. Jacob Graves MD PGY1 Internal Medicine Attending Provider Attestation/Addendum pt seen and examined with resident, agree with above. in brief this is a 89yo F brought to the ER for AMS with GCS <8 who was intubated. after intubation pt coded and ROSC was achieved. When I examined her in the ER she had open eyes and moving though unable to follow commands. She was on levophed. Lungs with coarse breath sounds, HRRR, blood in ETT, no abd distention. LA elevated at 9 and additional IVF were ordered. There was ? of Sz activity at home. Pt also noted to clutch her chest and unclear if there was chest pain therefore cardiac etiology also under investigation. HCT and CTA head and neck for stroke eval obtained and no gross bleed noted. admit orders for ICU placed however prior to arrival in the ICU pt coded once more. She had several arrests in the ER and family finally decided to change code status to DNR. pt in the ER prior to arrival to the ICU. case d/w ICU team labs, imaging, records reviewed ~70ccmin required for eval, exam, review, intervention, discussion and formulation of POC for this critically ill pt who unfortuanetly succumbed to her illness
--- NOTE | 2024-11-30 13:23 | PC.CC ---
Kick Press Setter assisted with contacting family as code blue was alerted for Pt. Kick Press Setter then supported attending doctor when information was given to family.
[2024-11-30] MEDS: VASOPRESSIN IN NS IVPB 20 UNIT/100 ML BAG 9 UNIT IV (13:43)
[2024-11-30] MEDS: VANCOMYCIN/NS 1 GM IVPB 200 ML IV (13:43)
[2024-11-30 14:29] LABS: Glucose Estimated Average 114 mg/dL (80-131); Hemoglobin A1C 5.6 % Hgb (4.8-6.0)
--- NOTE | 2024-11-30 14:30 | PD.RESEVENT ---
Documentation for date of: 11/30/24 Event Note Event Note: CODE BOBBY: Initial CODE BOBBY called at 1058 prior to ICU admission while patient was in ER care. After ICU admission, CODE BOBBY called at approximately 2:30 PM and followed by second CODE BOBBY at approximately 3:15 PM for pulseless electrical activity with a MAP less than 50 and bradycardia. Patient received about 10 minutes of CPR and epi at 2:30 PM and x 1 amp. ROSC achieved. Previous BMP uncollected, repeat CBC, CMP, repeat ABG, repeat lactic acid, repeat mag and phosphate. Lactic acid pending. Increasing Levophed titration and vasopressin already on board. Dobutamine, may be needed if no change in MAP after increasing Levophed. Right central IJV placed, see operative report Third CODE BOBBY called at approximately 315 report electrical activity and a decreasing MAP as central IJV completion. 20 minutes of CPR and epi. Lactic acid returned at 9.2. Pending repeat CMP and ABG. 2 Amps of bicarb. Family changed CODE STATUS to DNR and DNI and decision was made to stop CPR. Time of 3:40 PM, see pronouncement note. - The patient's plan was discussed with attending Dr. Jacob Graves MD PGY1 Internal Medicine
--- NOTE | 2024-11-30 15:15 | PC.CC ---
Nut Tapper assisted with contacting family members due to second code blue. Family members were escorted to conference room and filing writer support attending doctor with communicating with family members.
--- NOTE | 2024-11-30 15:24 | PC.NURSE ---
RESIDENTS AT BEDSIDE PERFORMING CENTRAL LINE, PATIENT BEGAN TO ANDREW DOWN AND NO PULSES WERE DETECTED. CODE BLUE CALLED AND TEAM ARRIVED TO ROOM. SEE PAPER CHARTING
--- NOTE | 2024-11-30 15:40 | PD.DDS ---
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 While in the ER, carl purdy was called three times, for pulseless electrical activity. Third code rajwinder at 3:15 PM, CPR was continued for at least 20 minutes without ROSC, family at bedside and primary caregiver, grand-daughter, Nano, decided to stop all further medical intervention and transition patient to DNR/DNI. Time of 3:40 PM. Family notified an counseled. Attending physician updated. ER Course: Vitals: Blood pressure 112/60, heart rate 85, temperature 97.5, SpO2 96% on 15 L of oxygen-->Decreased MAP <40s. WBC 13.3,Hgb 10.8, Hct 33.9, MCV 92, Plt Count 284 NA 138, K 3.8, Chloride 101, Carbon dioxide 23.6, Anion gap 13, BUN 19, Cr 1.0, GFR 55, BUN/CR 19, Glucose 282, BNP -->541 ABG 7.34, pCO2 44, pO2 138, HCO3 24, FIO2 100 CEA 5.7 (2023), 2.8 (2021), 7.6 (2020) Carl purdy called in the ER at 10:55 AM, MAP 37, PEA-->CPR & Epi-->Return of ROSC UA: negative blood cultures obtained ICU Consulted Pending CT head, NIHSS 33 Medication: epi X2, NS 2, Levophed Code Kevinude at 10:58 w/ return of ROSC -->ICU consulted and admitted to ICU for shock, unknown etiology and acute hypoxic respiratory failure, required mechanical ventilation. Hospital Course: Hospital Course: On arrival to the emergency room, patient presented with a Madison score of 6 this required mechanical intubation in left hemiparesis noted on physical exam. Patient was mechanically ventilated given inability protect airway. Concern for stroke with an NIHSS score of 33 and a tele-neuro consultation. CT head [id number] read negative for acute hemorrhage. CTA neck showed significant filling of the right common carotid artery and diffusely occluded right internal carotid artery, concern for occlusion. Plan for MRI if patient's lactic acidosis had improved. Concern for seizure as patient was noted have have bilateral tremors, urinary incontinence, and post-ictal state with foaming at the mouth. EEG ordered and Prolactine. EKG sinus rhythm. Chest x-ray concern for early heart failure with pulmonary vascular congestion. Shock of unknown etiology cardiogenic versus distributive with MAP less than 60. Patient started on Levophed and vasopressin. 3 L of NS. Levophed increased. Initial labs at 10:30 AM and for hypercalcemia and lactic acid returned at 1215 noted for elevated lactic acidosis of 9.3 troponin within normal limits initially but up trended to 0.895. BNP 541. Concern for CHF- lasix ordered, but given soft blood pressure and shock currently holding. Echo ordered. Patient meeting SIRS criteria with tachycardia and elevated WBC count with unknown source of infection, patient started empirically on ceftriaxone and vancomycin--> escalated to Zosyn and vancomycin. Blood cultures, urine cultures, and sputum cultures obtained. Acute hypoxic respiratory failure requiring mechanical ventilation. Metabolic acidosis with a high anion gap 24 secondary to lactic acidosis trended from 9.3-23.. Repeat labs, noted for hypernatremia and hyperosmolar, likely secondary to acute kidney injury as noted by repeat labs showing BUN of 21 and a creatinine level of 1.3. Hyperkalemia noted on repeat labs potassium at 7.1 likely secondary to lactic acidosis and OLIVA. Acute liver failure with encephalopathy as noted on repeat CMP with AST 827 and ALT 1018. Troponinemia noted on repeat labs 0.895. Rising leukocytosis uptrending from 13.3-14.5 likely secondary to reactive leukocytosis versus shock, distributive in nature. Acute on chronic normocytic anemia. Thrombocytopenia noted on repeat, down-trending to 284 to 51, more than 50% decrease less likely just dilutional likely contributing factor of shock. Underlying history of colorectal cancer with colostomy bag in place, last follow-up with oncology in 2023, of note CEA noted to be elevated at 5.7. CT head, chest and abdomen planned for 12/01/2024 if patient's vitals improved. Patient coded 3 times in the emergency room, once under the care of ER and to subsequently under the care of of ICU while patient remained in the emergency room. Patient developed pulseless electrical activity and despite multiple efforts with CPR and epinephrine, decision was made by family members and caregiver, to transition patient to DNR and DNI. No return to ROSC. Time of 3:40 PM at [facility] likely secondary to cardiopulmonary arrest with contributing factors of shock unknown etiology, acute encephalopathy, acute respiratory failure requiring mechanical ventilation, acute liver failure, OLIVA, and metabolic acidosis with high anion gap from lactic acidosis. Family at bedside, nursing staff, social work present. Time of 3:40 PM, see pronouncement note. #Cardiopulmonary arrest #Shock, unknown etiology #Acute encephalopathy #new onset CHF, unknown EF #Acute respiratory failure, mechanical ventilation, unable to protect airway #Acute Liver Failure #Metabolic Acidosis w/ high anion gap #Lactic Acidosis #OLIVA #Hypernatremia, hyperosmolar #Leukocytosis #Acute on chronic normocytic anemia #Thrombocytopenia #Hyperglycemia #Diabetes Mellitus Type II, non insulin dependent #history HTN #history of HLD #Colorectal cancer s/p resection #SIRs - The patient's plan was discussed with attending Dr. Jacob Graves MD PGY1 Internal Medicine Additional Data Confirmation of as documented by pronouncing clinician: no pulse, no respirations, no heart sounds and pupils fixed and dilated Family: at bedside Additional persons at bedside: social service agency director Attending/PCP notified?: Yes Attending physician: Edith James MD Was code activated?: Yes Autopsy requested?: No computer forensics examiner notified?: Yes Organ bank notified?: Yes Advance directives: No Hospice patient?: No Visit Providers Provider Primary care physician: Man Genao MD Consults: 11/30/24 10:20 Consult to Neurology / Tele-Neurology Routine Comment: Consulting Provider: [facility] Discharge Plan Plan Patient Disposition: Prescriptions/Referrals Referrals: Man Genao MD [Primary Care Provider] - Patient/Caregiver Discharge Instructions Print Language: Tuvaluan
--- NOTE | 2024-11-30 15:40 | PD.DPN ---
Documentation for date of: 11/30/24 Pronouncement Note Date and Time of Date of : 11/30/24 Time of : 15:40 PCOD Preliminary cause of : Cardiopulmonary arrest Contributing Factors (1) Shock: (2) Acute encephalopathy: (3) Acute respiratory distress: (4) Metabolic acidosis with increased anion gap and accumulation of organic acids: Summary Additional details: Our team was called to pronounce the of patient Moraima Mars. Upon examination, spontaneous movement were absent present. No response to verbal or tactile stimuli. No active heart or breath sounds were noted after 2 continuous minute of auscultation, including US guided. Pupils were unresponsive to light, corneal reflexes absent, patient unresponsive to external stimuli. Patient was pronounced on 3:40 PM at [facility]. Attending Dr. James was notified. The patient's family was present at bedside & consoled. - The patient's plan was discussed with attending Dr. Jacob Graves MD PGY1 Internal Medicine Additional Data Attending physician: Edith James MD
[2024-11-30 15:50] LABS: Reflex Lactate? Y
[2024-11-30 15:53] LABS: Basophils % (Auto) 0 % (0-2.5); Eosinophils % (Auto) 0 % (0-10); Hematocrit 20.5 % (36.0-46.0); Immature Granulocytes % (Auto) 7 % (0-0); Immature Granulocytes Auto 0.99 Thou/mm3 (0.00-0.00); Lymphocytes % (Auto) 34 % (10-50); Mean Corpuscular HGB Conc 31.7 g/dl (31.0-37.0); Mean Corpuscular Hemoglobin 29.8 pg (25.0-35.0); Mean Corpuscular Volume 94 fL (80-100); Monocytes # (Auto) 0.4 Thou/mm3 (0.0-0.8); Monocytes % (Auto) 3 % (0-12); Neutrophils # (Auto) 8.1 Thou/mm3 (1.8-7.7); Neutrophils % (Auto) 56 % (37-80); Nucleated Red Blood Cell # 0.14 Thou/mm3 (0.00-0.00); Nucleated Red Blood Cell % 1 /100 WBC (0); RDW Standard Deviation 53.9 fL (36.4-46.3); Red Blood Count 2.18 Miln/mm3 (4.00-5.20); White Blood Count 14.5 Thou/mm3 (3.6-11.0)
--- NOTE | 2024-11-30 15:55 | PD.RESPROC ---
Procedures Procedure Date / Time 11/30/24 3589 Central Line Placement Right IJ: Indication(s): shock and poor, or inadequate peripheral venous access Informed consent obtained: implied and procedure done urgently Time out done, and the following verified: correct patient, side and site, procedure and patient position Patient placed on monitor/pulse ox: Yes Hand Hygiene: scrub, soap & water and alcohol-based hand rub Max Sterile Barrier Techniques used: cap, mask, sterile gown, sterile gloves and sterile full body drape Central line prep: Povidone-Iodine 1% Local anesthesia used: lidocaine 1% Amount of anesthesia used (mL): 3 Ultrasound used for placement: Yes Sterile Technique if Ultrasound used, including sterile gel: yes Central line lumen inserted: triple Post procedure: sutured in place, good blood return, all ports aspirated, flushed, capped and sterile dressing applied Post procedure x-ray: tip of catheter in good position and no pneumothorax seen Patient tolerated procedure: well and no complications EBL(ml): 2 Complications: none Procedure comment: Procedure was done at beside with Dr Thomas. Procedure was done timlely and patient tolerated procedure well.
[2024-11-30 16:01] LABS: Alanine Aminotransferase 1018 U/L (10-49); Albumin, Serum 2.1 gm/dL (3.4-4.8); Albumin/Globulin Ratio 1.5 (1.2-2.2); Alkaline Phosphatase 88 U/L (46-116); Anion Gap 24 (7-16); Aspartate Amino Transferase 827 U/L (0-34); BUN/Creatinine Ratio 16 Ratio (12-20); Bilirubin,Total 0.3 mg/dL (0.3-1.2); Blood Urea Nitrogen 21 mg/dL (9-23); Calcium (Corrected) 8.1 mg/dL (8.5-10.1); Carbon Dioxide 30.3 mMol/L (20.0-31.0); Chloride 103 mMol/L (98-107); Creatinine (Component) 1.3 mg/dL (0.6-1.3); Estimated Creatinine Clearance 24.8 mL/min (>60); Globulin 1.4 gm/dL (2.3-3.5); Glucose 241 mg/dL (74-106); Hemoglobin 6.5 g/dL (12.0-16.0); Osmolality,Calculated 322 (275-295); Sodium 157 mMol/L (136-145); Total Protein 3.5 gm/dL (5.7-8.2); eGFR 40 See Note
[2024-11-30 16:02] LABS: Platelet Count 51 Thou/mm3 (140-440)
[2024-11-30 16:03] LABS: Potassium 7.1 mMol/L (3.4-5.1)
[2024-11-30 16:04] LABS: Calcium 6.6 mg/dL (8.3-10.6); Troponin I 0.895 ng/mL (0.0-0.045)
[2024-11-30 16:29] LABS: Slide Review Platelets confirmed
--- NOTE | 2024-11-30 16:31 | PC.NURSE ---
DONOR NETWORK CONTACTED AND INFORMATION COLLECTED. [facility] # [id number]. [facility] CONTACTED PER FAMILY REQUEST.
[2024-11-30 18:39] LABS: Reflex Lactate? Y
--- NOTE | 2024-12-10 10:52 | PC.NURSE ---
BELONGING BAG NOTED HERE IN ED, WITH CLOTHING AND DENTURES THAT BELONG TO THIS PATIENT. ATTEMPTED TO CONTACT SON AND NEXT TO KIN. SON'S PHONE IS GOING STRAIGHT TO VOICE MAIL BUT NOT ALLOWING THIS SKEINER TO LEAVE MESSAGE. NEXT TO KIN CONTACTED, NO ANSWER MESSAGE LEFT AT THIS TIME.
== END 2024-11-30 17:51 | disposition expired | DRG 291 ==
LOC: SERX 12:41 → SERHOLD 12:54
PROVIDERS: Student in an Organized Health Care Education/Training Program; Admitting Provider Internal Medicine; Emergency Provider Family Medicine; PCP Family Medicine; Visit Provider Internal Medicine
DX: R57.9 Shock, unspecified (principal); J96.01 Acute respiratory failure with hypoxia; K72.00 Acute and subacute hepatic failure without coma; G93.40 Encephalopathy, unspecified; R65.10 Systemic inflammatory response syndrome (SIRS) of non-infectious origin without acute organ dysfunction; E87.20 Acidosis, unspecified; G81.94 Hemiplegia, unspecified affecting left nondominant side; E87.0 Hyperosmolality and hypernatremia; N17.9 Acute kidney failure, unspecified; D64.9 Anemia, unspecified; E11.65 Type 2 diabetes mellitus with hyperglycemia; I46.9 Cardiac arrest, cause unspecified; I11.0 Hypertensive heart disease with heart failure; I48.91 Unspecified atrial fibrillation; I49.3 Ventricular premature depolarization; I50.9 Heart failure, unspecified; I65.21 Occlusion and stenosis of right carotid artery; E87.5 Hyperkalemia; D72.829 Elevated white blood cell count, unspecified; D69.6 Thrombocytopenia, unspecified; E78.5 Hyperlipidemia, unspecified; Z85.048 Personal history of other malignant neoplasm of rectum, rectosigmoid junction, and anus; Z66 Do not resuscitate; Z79.84 Long term (current) use of oral hypoglycemic drugs; Z93.3 Colostomy status
CPT/HCPCS: 36415; 36600; 70450; 70496; 70498; 71045; 80048; 80053; 80061; 80307; 80320; 81001; 82803; 83036; 83605; 83735; 83880; 84100; 84146; 84443; 84484; 85025; 85610; 85730; 87040; 87086; 87205; 92950; 93005; 94002; 94003; 96365; 96366; 96368; 96375; 99291; A4649; J0171; J0330; J0696; J1650; J2470; J2598; J2704; J3370; J3490; J7030; Q9967; G0480